=== PATIENT | male | born 1965 | race African-American/Black ===

== ENCOUNTER 2025-02-09 21:53 | Emergency (ER) | payer MEDICARE, OTHER ==
[~2025-02-09] VITALS: Ht 185.4 cm; Wt 90.7 kg
[2025-02-09 21:56] VITALS: BP 128/70
[2025-02-09] MEDS ORDERED: TRIHEXYPHENIDYL HCL 2 MG TABLET PO STA (22:29)
[2025-02-09] MEDS ORDERED: LORAZEPAM 0.5 MG TABLET PO ONE (22:45)
[2025-02-09 22:47] LABS: PLATELET COUNT (AUTO) 197 K/uL (152-348); RED BLOOD CELL COUNT(AUTO) 3.90 MIL/uL (4.06-5.63); RED CELL DISTRIBUTION WIDTH 13.1 % (12.1-16.2); WHITE BLOOD COUNT (AUTO) 6.3 K/uL (3.6-10.2)
[2025-02-09] MEDS ORDERED: TRIHEXYPHENIDYL HCL 2 MG TABLET ONE (22:48)
[2025-02-09 22:52] LABS: *BILIRUBIN,URIN NEGATIVE (NEGATIVE); *BLOOD, URINE NEGATIVE (NEGATIVE); *CLARITY,URINE CLEAR (CLEAR); *COLOR,URINE YELLOW (YELLOW); *KETONES,URINE TRACE (NEGATIVE); *PROTEIN,URINE NEGATIVE (NEGATIVE); *UROBILINOGEN,URINE 4.0 E.U./dl (NORMAL); LEUKOCYTE ESTERASE ,URINE NEGATIVE (NEGATIVE); NITRITE, URINE NEGATIVE (NEGATIVE); UGLUCOSE NEGATIVE (NEGATIVE)
[2025-02-09 22:58] LABS: CREATININE 1.7 mg/dL (0.6-1.3); SODIUM SERUM 140.0 mmol/L (136-145); UREA NITROGEN, BLOOD 34.0 mg/dL (7-18)
[2025-02-09] MEDS: TRIHEXYPHENIDYL HCL 2 MG TABLET PO STA (22:59)
[2025-02-09 23:04] LABS: ASPARTATE AMINOTRANSFERASE 52.0 U/L (15-37); TOTAL PROTEIN, SERUM 8.4 g/dL (6.4-8.2)
[2025-02-10] MEDS: LORAZEPAM 0.5 MG TABLET PO ONE ×2 (00:16→00:59)
[2025-02-10] MEDS ORDERED: LORAZEPAM 0.5 MG TABLET ONE ×2 (00:16→00:58)
[2025-02-10] MEDS ORDERED: TRIH2TAB5 PO (01:11)
[2025-02-10 03:09] VITALS: BP 128/70; TEMP 97.8; O2SAT 99
== END 2025-02-10 03:10 ==
LOC: ER 22:02
DX: R25.1 Tremor, unspecified (principal); R10.30 Lower abdominal pain, unspecified; F41.9 Anxiety disorder, unspecified; R79.89 Other specified abnormal findings of blood chemistry; E78.5 Hyperlipidemia, unspecified; R53.2 Functional quadriplegia; Z87.820 Personal history of traumatic brain injury; Z95.5 Presence of coronary angioplasty implant and graft; Z86.69 Personal history of other diseases of the nervous system and sense organs; Z86.79 Personal history of other diseases of the circulatory system; Z87.39 Personal history of other diseases of the musculoskeletal system and connective tissue
CPT/HCPCS: 36415; 83690; 85025; A4606; A4663

== ENCOUNTER 2025-03-16 17:07 | Inpatient (IN) | payer MEDICARE, OTHER ==
[~2025-03-16] VITALS: Ht 185.4 cm; Wt 72.3 kg
[~2025-03-16 17:07] MED LIST: TRIH2TAB5 PO
[2025-03-16 17:57] VITALS: BP 101/56
[2025-03-16] MEDS: IV NORMAL SALINE 1000 ML BAG IV ONE (18:18)
[2025-03-16 18:20] LABS: PLATELET COUNT (AUTO) 185 K/uL (152-348); RED BLOOD CELL COUNT(AUTO) 4.11 MIL/uL (4.06-5.63); RED CELL DISTRIBUTION WIDTH 12.8 % (12.1-16.2); WHITE BLOOD COUNT (AUTO) 5.4 K/uL (3.6-10.2)
[2025-03-16 18:31] LABS: CREATININE 1.7 mg/dL (0.6-1.3); SODIUM SERUM 138 mmol/L (136-145); UREA NITROGEN, BLOOD 41 mg/dL (7-18)
[2025-03-16] MEDS ORDERED: ATOR20TA PO (18:41)
[2025-03-16] MEDS ORDERED: LACO50TA2 PO (18:41)
[2025-03-16] MEDS ORDERED: LEVE500T20 PO (18:41)
[2025-03-16] MEDS ORDERED: LISI10TA29 PO (18:41)
[2025-03-16] MEDS ORDERED: FURO40TA5 PO (18:41)
[2025-03-16] MEDS ORDERED: NICO-671 TD (18:41)
[2025-03-16] MEDS ORDERED: CARV25TA2 PO (18:41)
[2025-03-16] MEDS ORDERED: MIRT-93 PO (18:41)
[2025-03-16] MEDS ORDERED: LORA-259 PO (18:41)
[2025-03-16] MEDS ORDERED: LEVE750T4 PO (18:41)
[2025-03-16] MEDS ORDERED: TRIH2TAB5 PO (18:41)
[2025-03-16] MEDS ORDERED: LORAZEPAM 2 MG/1 ML VIAL IV PRN (18:45)
[2025-03-16] MEDS ORDERED: ONDANSETRON 4 MG/2 ML VIAL IV PRN (18:45)
[2025-03-16] MEDS ORDERED: ACETAMINOPHEN 325 MG TABLET PO PRN (18:45)
[2025-03-16] MEDS ORDERED: MORPHINE SULFATE 2 MG/1 ML DISP.SYRIN IVP PRN (18:45)
[2025-03-16 21:17] VITALS: BP 102/65; TEMP 98.4; O2SAT 100
[2025-03-16] MEDS: IV NS 1000 ML 1,000 ML IV SCH (21:36)
[2025-03-16] MEDS: LACOSAMIDE 100 MG in IV NORMAL SALINE 50 ML IV SCH (21:37)
[2025-03-16 23:40] VITALS: BP 103/62; TEMP 97.5; O2SAT 99
[2025-03-17 03:10] LABS: *BILIRUBIN,URIN NEGATIVE (NEGATIVE); *BLOOD, URINE NEGATIVE (NEGATIVE); *CLARITY,URINE CLEAR (CLEAR); *COLOR,URINE YELLOW (YELLOW); *KETONES,URINE NEGATIVE (NEGATIVE); *PROTEIN,URINE NEGATIVE (NEGATIVE); *UROBILINOGEN,URINE 0.2 E.U./dl (NORMAL); NITRITE, URINE NEGATIVE (NEGATIVE); UGLUCOSE NEGATIVE (NEGATIVE)
[2025-03-17 03:14] LABS: LEUKOCYTE ESTERASE ,URINE TRACE (NEGATIVE)
[2025-03-17 03:44] LABS: SQUAMOUS EPITHELIAL CELL,UR FEW /HPF (NONE SEEN); YEAST,URINE MODERATE /HPF (NONE SEEN)
[2025-03-17 05:47] VITALS: BP 129/64; TEMP 97.8; O2SAT 97
[2025-03-17 06:49] LABS: PLATELET COUNT (AUTO) 158 K/uL (152-348); RED BLOOD CELL COUNT(AUTO) 3.60 MIL/uL (4.06-5.63); RED CELL DISTRIBUTION WIDTH 12.4 % (12.1-16.2); WHITE BLOOD COUNT (AUTO) 5.6 K/uL (3.6-10.2)
[2025-03-17 07:08] LABS: ASPARTATE AMINOTRANSFERASE 53.0 U/L (15-37); CREATININE 1.3 mg/dL (0.6-1.3); SODIUM SERUM 139.0 mmol/L (136-145); TOTAL PROTEIN, SERUM 7.4 g/dL (6.4-8.2); UREA NITROGEN, BLOOD 31.0 mg/dL (7-18)
[2025-03-17 07:44] VITALS: BP 115/55; TEMP 98; O2SAT 98
[2025-03-17 08:16] VITALS: BP 113/59
[2025-03-17] MEDS: HEPARIN SODIUM,PORCINE 5,000 UNITS/ML VIAL SQ SCH (08:27)
[2025-03-17] MEDS ORDERED: LORA-258 PO (09:47)
[2025-03-17] MEDS: LACOSAMIDE 50 MG TABLET PO SCH (10:01)
[2025-03-17 10:27] LABS: ETHANOL < 3 MG/DL (0-10)
[2025-03-17 10:40] VITALS: BP 143/69; TEMP 97.5; O2SAT 100
[2025-03-17] MEDS: DIVALPROEX 500 MG TABLET.DR PO ONE (11:29)
[2025-03-17 12:06] LABS: *AMPHETAMINE, URINE NEGATIVE (NEGATIVE); *BARBITURATE, URINE NEGATIVE (NEGATIVE); *BENZODIAZEPINE, URINE NEGATIVE (NEGATIVE); *CANNABINOID, URINE NEGATIVE (NEGATIVE); *COCCAINE, URINE NEGATIVE (NEGATIVE); *OPIATE, URINE NEGATIVE (NEGATIVE); *PHENCYCLIDINE SCREEN,URINE NEGATIVE (NEGATIVE); FENTANYL, URINE NEGATIVE (NEGATIVE)
[2025-03-17] MEDS: LORAZEPAM 0.5 MG TABLET PO SCH (13:34)
[2025-03-17] MEDS: DIVALPROEX 500 MG TABLET.DR PO SCH (13:34)
[2025-03-17] MEDS: TRIHEXYPHENIDYL HCL 2 MG TABLET PO SCH (16:09)
[2025-03-17 16:15] VITALS: BP 156/82; TEMP 97.7; O2SAT 100
[2025-03-17] MEDS: CARVEDILOL 25 MG TABLET PO SCH (16:16)
[2025-03-17 19:00] VITALS: BP 119/68; TEMP 97.8; O2SAT 100
[2025-03-17] MEDS: MIRTAZAPINE 15 MG TABLET PO SCH (20:26)
[2025-03-18 04:00] VITALS: BP 102/61; TEMP 98.4; O2SAT 99
[2025-03-18 06:41] LABS: PLATELET COUNT (AUTO) 172 K/uL (152-348); RED BLOOD CELL COUNT(AUTO) 3.79 MIL/uL (4.06-5.63); RED CELL DISTRIBUTION WIDTH 12.8 % (12.1-16.2); WHITE BLOOD COUNT (AUTO) 4.7 K/uL (3.6-10.2)
[2025-03-18 06:57] LABS: CREATININE 1.2 mg/dL (0.6-1.3); SODIUM SERUM 140.0 mmol/L (136-145); UREA NITROGEN, BLOOD 18.0 mg/dL (7-18)
[2025-03-18] MEDS: NICOTINE 7 MG/24HR PATCH TD SCH (08:47)
[2025-03-18] MEDS: FUROSEMIDE 20 MG TABLET PO SCH (08:49)
[2025-03-18] MEDS ORDERED: TRIH2TAB5 PO (10:52)
[2025-03-18] MEDS ORDERED: LORA-258 PO (10:52)
[2025-03-18] MEDS ORDERED: LEVE500T20 PO (10:52)
[2025-03-18] MEDS ORDERED: LEVE750T4 PO (10:52)
[2025-03-18] MEDS ORDERED: LACO50TA2 PO (10:52)
[2025-03-18] MEDS ORDERED: FURO-152 PO (10:52)
[2025-03-18 10:59] VITALS: BP 113/71; TEMP 97.8; O2SAT 100
[2025-03-18] MEDS ORDERED: ATORVASTATIN 20 MG TABLET PO SCH (21:00)
== END 2025-03-18 14:40 | disposition home health service (06) | DRG 312 ==
LOC: ER 17:10 → TELE3 20:42 → MEDSURG3 03-17 08:09
PROVIDERS: ADMIT Internal Medicine; ATTEND Nurse Practitioner Family
DX: I95.1 Orthostatic hypotension (principal); N17.9 Acute kidney failure, unspecified; I42.0 Dilated cardiomyopathy; I50.22 Chronic systolic (congestive) heart failure; T50.2X5A Adverse effect of carbonic-anhydrase inhibitors, benzothiadiazides and other diuretics, initial encounter; G25.0 Essential tremor; T44.3X6A Underdosing of other parasympatholytics [anticholinergics and antimuscarinics] and spasmolytics, initial encounter; I69.920 Aphasia following unspecified cerebrovascular disease; I69.998 Other sequelae following unspecified cerebrovascular disease; Z99.3 Dependence on wheelchair; I11.0 Hypertensive heart disease with heart failure; G40.909 Epilepsy, unspecified, not intractable, without status epilepticus; Z79.899 Other long term (current) drug therapy; Z95.810 Presence of automatic (implantable) cardiac defibrillator; E78.5 Hyperlipidemia, unspecified; F95.9 Tic disorder, unspecified; G25.2 Other specified forms of tremor; F17.210 Nicotine dependence, cigarettes, uncomplicated; Z91.A3 Caregiver's unintentional underdosing of patient's medication regimen; Y92.099 Unspecified place in other non-institutional residence as the place of occurrence of the external cause; E11.9 Type 2 diabetes mellitus without complications; R53.1 Weakness
CPT/HCPCS: 36415; 70450; 71045; 83735; 84100; 84443; 84484; 85025; 87086; A9150; G0378; G0480; J0696; J1644; J7040

== ENCOUNTER 2025-04-12 19:21 | Inpatient (IN) | payer MEDICARE, OTHER ==
[~2025-04-12] VITALS: Ht 185.4 cm; Wt 72.7 kg
[~2025-04-12 19:21] MED LIST changes: +ATOR20TA PO; +CARV25TA2 PO; +FURO-152 PO; +LACO50TA2 PO; +LEVE500T20 PO; +LEVE750T4 PO; +LISI10TA29 PO; +LORA-258 PO; +MIRT-93 PO; +NICO-671 TD
[2025-04-12 20:17] LABS: PLATELET COUNT (AUTO) 221 K/uL (152-348); RED BLOOD CELL COUNT(AUTO) 3.94 MIL/uL (4.06-5.63); RED CELL DISTRIBUTION WIDTH 13.0 % (12.1-16.2); WHITE BLOOD COUNT (AUTO) 5.3 K/uL (3.6-10.2)
[2025-04-12] MEDS ORDERED: ONDANSETRON 4 MG/2 ML VIAL ONE (20:19)
[2025-04-12] MEDS ORDERED: HYDROMORPHONE 1 MG/1 ML DISP.SYRIN ONE (20:20)
[2025-04-12] MEDS: ONDANSETRON 4 MG/2 ML VIAL IV ONE (20:22)
[2025-04-12] MEDS: HYDROMORPHONE 1 MG/1 ML DISP.SYRIN IV ONE (20:23)
[2025-04-12 20:38] LABS: ASPARTATE AMINOTRANSFERASE 51 U/L (15-37); CREATININE 1.3 mg/dL (0.6-1.3); SODIUM SERUM 142 mmol/L (136-145); TOTAL PROTEIN, SERUM 8.5 g/dL (6.4-8.2); UREA NITROGEN, BLOOD 20 mg/dL (7-18)
[2025-04-12 21:26] LABS: *BILIRUBIN,URIN NEGATIVE (NEGATIVE); *CLARITY,URINE CLEAR (CLEAR); *COLOR,URINE YELLOW (YELLOW); *KETONES,URINE TRACE (NEGATIVE); *PROTEIN,URINE NEGATIVE (NEGATIVE); *UROBILINOGEN,URINE 1.0 E.U./dl (NORMAL); LEUKOCYTE ESTERASE ,URINE NEGATIVE (NEGATIVE); NITRITE, URINE NEGATIVE (NEGATIVE); UGLUCOSE NEGATIVE (NEGATIVE)
[2025-04-12 21:34] LABS: *BLOOD, URINE TRACE (NEGATIVE)
[2025-04-12 21:38] LABS: SQUAMOUS EPITHELIAL CELL,UR FEW /HPF (NONE SEEN); URINE AMORPHOUS URATE FEW /HPF
[2025-04-12] MEDS ORDERED: IV NORMAL SALINE 250 ML IV ONE (21:39)
[2025-04-12] MEDS ORDERED: IOHEXOL 300MG/ML 100 ML INFUS..BTL ONE (21:39)
[2025-04-12] MEDS ORDERED: SWABABLE VALVE TRANSFER SET EA MC ONE (21:39)
[2025-04-13 01:03] VITALS: BP 115/73
[2025-04-13] MEDS ORDERED: ONDANSETRON 4 MG/2 ML VIAL IV PRN (03:15)
[2025-04-13] MEDS ORDERED: REMEDY ESSENTIAL ZINC PASTE 113 GM TP PRN (03:15)
[2025-04-13] MEDS ORDERED: LORAZEPAM 2 MG/1 ML VIAL IV PRN (03:15)
[2025-04-13] MEDS ORDERED: HYDROCODONE/APAP 5-325MG TABLET PO PRN (03:15)
[2025-04-13] MEDS ORDERED: ACETAMINOPHEN 325 MG TABLET PO PRN (03:15)
[2025-04-13 06:09] VITALS: BP 126/76; TEMP 97.5; O2SAT 97
[2025-04-13] MEDS: MIRALAX 17 GM POWD.PACK PO SCH (08:35)
[2025-04-13] MEDS: NICOTINE 14 MG/24HR PATCH TD SCH (08:35)
[2025-04-13] MEDS: ATORVASTATIN 20 MG TABLET PO SCH (08:36)
[2025-04-13] MEDS: LISINOPRIL 10 MG TABLET PO SCH (08:37)
[2025-04-13] MEDS: LORAZEPAM 0.5 MG TABLET PO SCH (08:37)
[2025-04-13] MEDS: LACOSAMIDE 50 MG TABLET PO SCH (08:37)
[2025-04-13] MEDS: FUROSEMIDE 20 MG TABLET PO SCH (08:37)
[2025-04-13] MEDS: CARVEDILOL 25 MG TABLET PO SCH (08:38)
[2025-04-13] MEDS: PANTOPRAZOLE SODIUM 40 MG TABLET.DR PO SCH (08:40)
[2025-04-13] MEDS ORDERED: LACOSAMIDE 100 MG in IV NORMAL SALINE 50 ML IV SCH (09:00)
[2025-04-13] MEDS ORDERED: TRIHEXYPHENIDYL HCL 2 MG TABLET PO SCH (09:00)
[2025-04-13 11:07] VITALS: BP 103/60; TEMP 97.7; O2SAT 97
[2025-04-13] MEDS: TRIHEXYPHENIDYL HCL 2 MG TABLET PO SCH (12:21)
[2025-04-13] MEDS: DOCUSATE SODIUM 100 MG CAPSULE PO SCH (12:33)
[2025-04-13 15:02] VITALS: BP 101/72; TEMP 98.4; O2SAT 98
[2025-04-13 19:00] VITALS: BP 113/70; TEMP 98; O2SAT 100
[2025-04-13] MEDS: MIRTAZAPINE 15 MG TABLET PO SCH (20:35)
[2025-04-13] MEDS: SENNOSIDES 1 TABLET PO SCH (20:35)
[2025-04-14 04:00] VITALS: BP 109/76; TEMP 98.3; O2SAT 96
[2025-04-14] MEDS ORDERED: MIRALAX 17 GM POWD.PACK PO SCH (09:00)
[2025-04-14 09:37] LABS: PLATELET COUNT (AUTO) 205 K/uL (152-348); RED BLOOD CELL COUNT(AUTO) 3.85 MIL/uL (4.06-5.63); RED CELL DISTRIBUTION WIDTH 13.1 % (12.1-16.2); WHITE BLOOD COUNT (AUTO) 6.0 K/uL (3.6-10.2)
[2025-04-14 09:51] LABS: CREATININE 1.1 mg/dL (0.6-1.3); SODIUM SERUM 141.0 mmol/L (136-145); UREA NITROGEN, BLOOD 13.0 mg/dL (7-18)
[2025-04-14] MEDS ORDERED: CARV6.252 PO (10:10)
[2025-04-14 10:56] VITALS: BP 114/82; TEMP 97.9; O2SAT 99
[2025-04-14 16:16] VITALS: BP 106/74; TEMP 98; O2SAT 100
[2025-04-14 16:29] VITALS: BP 106/70
[2025-04-14] MEDS ORDERED: ATORVASTATIN 20 MG TABLET PO SCH (21:00)
== END 2025-04-14 17:00 | disposition home health service (06) | DRG 391 ==
LOC: ER 19:21 → MEDSURG3 04-13 03:00
PROVIDERS: ADMIT Nurse Practitioner Family; ATTEND Internal Medicine
DX: K59.00 Constipation, unspecified (principal); R53.2 Functional quadriplegia; I42.0 Dilated cardiomyopathy; G25.0 Essential tremor; I69.320 Aphasia following cerebral infarction; R62.7 Adult failure to thrive; G40.909 Epilepsy, unspecified, not intractable, without status epilepticus; E78.5 Hyperlipidemia, unspecified; I11.0 Hypertensive heart disease with heart failure; I25.10 Atherosclerotic heart disease of native coronary artery without angina pectoris; I50.9 Heart failure, unspecified; D75.89 Other specified diseases of blood and blood-forming organs; K57.30 Diverticulosis of large intestine without perforation or abscess without bleeding; I69.398 Other sequelae of cerebral infarction; R53.1 Weakness; Z99.3 Dependence on wheelchair; Z95.810 Presence of automatic (implantable) cardiac defibrillator; Z98.61 Coronary angioplasty status; Z79.899 Other long term (current) drug therapy; R74.01 Elevation of levels of liver transaminase levels
CPT/HCPCS: 36415; 71045; 83690; 83735; 84100; 84484; 85025; 85730; 87086; A4606; A4663; C1758; G0378; J1171; J1953; J2405; Q9967